=== PATIENT | female | born 1995 | race African-American/Black ===

== ENCOUNTER 2017-06-19 22:44 | Emergency (ER) | payer OTHER ==
[2017-06-19] MEDS ORDERED: Bacitracin Zinc 1 Packet ONE (23:55)
== END 2017-06-20 00:05 | disposition home or self-care (01) ==
LOC: SCSER 22:44
DX: S61.102A Unspecified open wound of left thumb with damage to nail, initial encounter (principal); W22.8XXA Striking against or struck by other objects, initial encounter
CPT/HCPCS: 99283

== ENCOUNTER 2020-04-02 08:52 | Emergency (ER) | payer OTHER ==
[2020-04-02 09:48] LABS: ALT (SGPT) 8 U/L (8-55); AST (SGOT) 15 U/L (5-34); Albumin 3.8 g/dL (3.5-5.0); Alkaline Phosphatase 75 U/L (40-110); Anion Gap 11 mmol/L (10-20); BUN (Urea Nitrogen) 8 mg/dL (7.0-18.7); Bilirubin, Total 0.2 mg/dL (0.2-1.2); Calc. Creatinine Clearance 0 mL/min (70-130); Calcium 8.8 mg/dL (7.8-10.44); Carbon Dioxide 23 mmol/L (22-29); Chloride 104 mmol/L (98-107); Globulin 3.9 g/dL (2.4-3.5); Glucose 96 mg/dL (70-105); Potassium 3.1 mmol/L (3.5-5.1); Protein, Total 7.7 g/dL (6.0-8.3); Sodium 135 mmol/L (136-145)
[2020-04-02 09:53] LABS: #Eosinphils 0.1 thou/uL (0.0-0.7); #Monocytes 0.5 thou/uL (0.11-0.59); #Neutrophils 4.1 thou/uL (1.40-6.50); %Basophils 0.4 % (0.0-1.0); %Eosinophils 1.2 % (0.0-10.0); %Monocytes 6.8 % (0.0-10.0); %Neutrophils 61.6 % (42.0-75.0); Hemoglobin 6.9 g/dL (12.0-16.0); Hypochromia MODERATE=16-30 cells (100X) (0-5/hpf); MDiff Complete? YES; Mean Corpuscular HGB CONC 29.7 g/dL (32.0-36.0); Mean Corpuscular Volume 63.8 fL (78.0-98.0); Mean Platelet Volume 10.3 fL (7.4-10.4); Microcytosis MARKED = >30 cells (100X) (0-5/hpf); Ovalocytes SLIGHT = 2-5 cells (100X) (0-1/hpf); Platelet Count 290 thou/uL (130-400); Platelet Morphology Comment Appears Adequate; Polychromasia SLIGHT = 2-3 cells (100X) (0-2/hpf); RBC Distribution Width 17.1 % (11.5-14.5); Red Blood Cell (RBC) Count 3.63 mill/uL (4.20-5.40); Reflex for Review?? YES; White Blood Cell (WBC) Count 6.6 thou/uL (4.8-10.8)
[2020-04-02] MEDS ORDERED: Potassium Chloride 20 MEQ TAB ONE (10:51)
== END 2020-04-02 15:20 | disposition home or self-care (01) ==
LOC: ERS 08:52
DX: O99.011 Anemia complicating pregnancy, first trimester (principal); D64.9 Anemia, unspecified; O99.281 Endocrine, nutritional and metabolic diseases complicating pregnancy, first trimester; E87.6 Hypokalemia; Z3A.12 12 weeks gestation of pregnancy
CPT/HCPCS: 36415; 36430; 80053; 83735; 85025; 85060; 86850; 86900; 86901; P9016